=== PATIENT | male | born 1995 ===

== ENCOUNTER 2023-12-12 16:07 | Emergency (ER) | payer BC, OTHER ==
[2023-12-12] MEDS: Sulfamethoxazole/Trimethoprim 800-160 MG Tab PO ONE (16:43)
[2023-12-12] MEDS: Lidocaine 1% 5 ML VIAL INJECT ONE (16:43)
[2023-12-12] MEDS: HYDROmorphone 1 MG/ML Syringe IM ONE ×2 (16:43→17:24)
[2023-12-12] MEDS: Ibuprofen 800 MG Tab PO ONE (18:20)
[2023-12-12] MEDS: Acetaminophen/HYDROcodone 325-5 MG Tab PO ONE (18:20)
[2023-12-12 18:21] VITALS: BP 141/80; PULSE 75
== END 2023-12-12 18:40 | disposition home or self-care (01) ==
LOC: MW.ED 16:07
DX: K61.0 Anal abscess (principal)
CPT/HCPCS: 46050; 96372; 99282; A9270; J1170; 10060; 99283; J3490